=== PATIENT | female | born 1960 | race Caucasian/White ===

== ENCOUNTER 2021-02-17 07:31 | Observation (INO) | payer OTHER ==
[~2021-02-17] VITALS: Ht 162.6 cm; Wt 63.5 kg
[~2021-02-17 07:31] MED LIST: FEROSUL325 MG PO; REXULTI1 MG; SUBOXONE 2 MG-1 EAC2; TYLENOL325 MG PO; VYVANSE30 MG; [UNRECOGNIZED DRUG - REMARK]
[2021-02-17] MEDS ORDERED: CELECOXIB 200 MG CAP ONE (07:39)
[2021-02-17] MEDS ORDERED: DEXAMETHASONE SOD PHOS 10 MG/1 ML VIAL ONE (07:39)
[2021-02-17] MEDS ORDERED: SODIUM CHLORIDE 0.9% 50ML 100 ML ONE (07:40)
[2021-02-17] MEDS ORDERED: GABAPENTIN 300 MG CAP ONE (07:40)
[2021-02-17] MEDS ORDERED: Vancomycin IV 1,000 MG ONE (07:45)
[2021-02-17] MEDS ORDERED: SODIUM CHLORIDE 0.9% 500ML 500 ML ONE (07:45)
[2021-02-17] MEDS ORDERED: TRANEXAMIC ACID 1,000 MG/10 ML ML ONE (07:45)
[2021-02-17] MEDS ORDERED: ROPIVACAINE 246.25 MG, EPINEPHRINE HCL 1:1000 1ML 0.5 MG, CLONIDINE HCL 0.08 MG, KETORO... INJ ONE ×5 (08:00)
[2021-02-17] MEDS ORDERED: DOCUSATE SODIUM 100 MG CAP PO PRN (10:00)
[2021-02-17] MEDS ORDERED: ONDANSETRON HCL INJ 2MG/ML 2ML 2 MG/ML VIAL IV PRN (10:00)
[2021-02-17] MEDS ORDERED: HYDROCODONE/APAP 5MG-325MG TAB PO PRN (10:00)
[2021-02-17] MEDS ORDERED: ACETAMINOPHEN 650 MG SUPP PR PRN (10:00)
[2021-02-17] MEDS ORDERED: KETOROLAC TROMETHAMINE 30 MG/ML VIAL IV PRN (10:00)
[2021-02-17] MEDS ORDERED: DIPHENHYDRAMINE HCL INJ 50 MG/ML VIAL IV PRN (10:00)
[2021-02-17] MEDS ORDERED: HYDROMORPHONE 1MG/1ML INJ ONE (10:17)
[2021-02-17] MEDS ORDERED: MORPHINE SULFATE INJ 2 MG/ML SYR ONE ×2 (10:30→10:35)
[2021-02-17] MEDS ORDERED: KETOROLAC TROMETHAMINE 30 MG/ML VIAL ONE (10:39)
[2021-02-17] MEDS ORDERED: ACETAMINOPHEN 1000 MG/100 ML IV STA (10:50)
[2021-02-17] MEDS ORDERED: DIAZEPAM INJ 5 MG/ML 2 ML IV ONE (11:00)
[2021-02-17] MEDS ORDERED: PROPOFOL IV EMULSION 10 MG/ML 20 ML VIAL ONE (11:57)
[2021-02-17] MEDS ORDERED: ONDANSETRON HCL INJ 2MG/ML 2ML 2 MG/ML VIAL ONE (11:57)
[2021-02-17] MEDS ORDERED: LIDOCAINE HCL 2% LOCAL INJ 5 ML SDV VIAL INJ ONE (11:57)
[2021-02-17] MEDS ORDERED: POVIDONE IODINE 0.05% 0.05 % ML PO ONE (11:57)
[2021-02-17] MEDS ORDERED: SEVOFLURANE INHAL SOLN 250 ML PEN BTL ONE (11:57)
[2021-02-17] MEDS ORDERED: MIDAZOLAM HCL 2 MG/2 ML VIAL ONE (12:28)
[2021-02-17] MEDS ORDERED: KETAMINE HCL INJ 50 MG/ML 10 ML VIAL ONE (12:28)
[2021-02-17] MEDS ORDERED: FENTANYL CITRATE/PF 100MCG/2 ML INJ ONE (12:28)
[2021-02-17] MEDS ORDERED: ROPIVACAINE 0.5% 5 MG/ML 30 ML SDV ONE (13:28)
[2021-02-17] MEDS ORDERED: LIDOCAINE 2%/ EPINEPHRINE 20ML MDV ONE (13:28)
[2021-02-17 14:08] VITALS: BP 154/81
[2021-02-17 14:16] VITALS: BP 168/77
[2021-02-17 15:45] VITALS: BP 131/70
[2021-02-17] MEDS: SUCRALFATE 1 GM/10 ML SUSP NG SCH ×3 (16:30→22:00)
[2021-02-17] MEDS ORDERED: CELECOXIB 100 MG CAP PO SCH (17:00)
[2021-02-17] MEDS ORDERED: ENOXAPARIN SOD INJ 40 MG/0.4 ML SYR SC SCH (17:00)
[2021-02-17] MEDS: SODIUM CHLORIDE 0.9% 1000ML 1,000 ML IV SCH (17:01)
[2021-02-17] MEDS: Cefazolin 1 GM in SODIUM CHLORIDE 0.9% 50ML 50 ML IV SCH ×2 (17:02→22:00)
[2021-02-17 20:00] VITALS: BP 113/61
[2021-02-17] MEDS ORDERED: SUBOXONE 8 MG SL ONE (20:15)
[2021-02-17 20:24] VITALS: BP 113/61
[2021-02-17] MEDS ORDERED: ZOLPIDEM TARTRATE 5 MG TAB PO PRN (21:00)
[2021-02-17] MEDS: HYDROCODONE/APAP 7.5MG-325MG 1 EA TAB PO PRN (21:17)
[2021-02-18] VITALS: BP 107/64
[2021-02-18] MEDS: HYDROCODONE/APAP 7.5MG-325MG 1 EA TAB PO PRN (01:51)
[2021-02-18 04:00] VITALS: BP 127/68
[2021-02-18] MEDS ORDERED: MORPHINE SULFATE INJ 4 MG/ML INJ 1ML IV PRN (04:15)
[2021-02-18] MEDS: SODIUM CHLORIDE 0.9% 1000ML 1,000 ML IV SCH (04:18)
[2021-02-18 05:00] LABS: BASOPHILS % 0.1 % (0.0-1.0); HEMATOCRIT 31.6 % (34.2-44.1); HEMOGLOBIN 9.4 g/dL (12.0-16.0); LYMPHOCYTES % 13.9 % (18.0-39.1); MEAN CORPUSCULAR HEMOGLOBIN 24.4 pg (28-32); MEAN CORPUSCULAR HGB CONC 29.7 g/dL (31-35); MEAN CORPUSCULAR VOLUME 82.1 fL (81-99); MONOCYTES # (AUTO) 0.6 (0.2-0.8); NEUTROPHILS # (AUTO) 5.7 (2.1-6.9); NEUTROPHILS % 77.7 % (38.7-80.0); PLATELET COUNT 328 x10e3/uL (140-360); RED BLOOD COUNT 3.85 x10e6/uL (3.6-5.1)
[2021-02-18] MEDS ORDERED: MORPHINE SULFATE INJ 4 MG/ML INJ 1ML IV ONE (05:15)
[2021-02-18 05:17] LABS: ANION GAP 12.3 mmol/L (8-16); CALCIUM 8.3 mg/dL (8.4-10.2); CREATININE, SERUM 0.65 mg/dL (0.57-1.11); POTASSIUM 4.3 mmol/L (3.5-5.1)
[2021-02-18] MEDS: Cefazolin 1 GM in SODIUM CHLORIDE 0.9% 50ML 50 ML IV SCH (06:34)
[2021-02-18 07:52] VITALS: BP 142/75
[2021-02-18 08:07] VITALS: BP 142/75
[2021-02-18] MEDS: SUCRALFATE 1 GM/10 ML SUSP NG SCH (08:30)
[2021-02-18] MEDS ORDERED: SUBOXONE SL SCH (09:00)
[2021-02-18] MEDS ORDERED: ONDANSETRON HCL 4 MG ORAL DISINTEGRATING TAB PO PRN (09:15)
[2021-02-18] MEDS ORDERED: ACETAMINOPHEN 1000 MG/100 ML IV PRN (10:00)
[2021-02-18] MEDS ORDERED: PANTOPRAZOLE SOD 40 MG TABEC PO SCH (16:30)
== END 2021-02-18 10:30 | disposition home or self-care (01) ==
LOC: OR 07:31 → PACU V 10:01 → MED/SURG 13:48
PROVIDERS: ADMIT Specialist; ATTEND Specialist
DX: M17.12 Unilateral primary osteoarthritis, left knee (principal); J44.9 Chronic obstructive pulmonary disease, unspecified; G89.4 Chronic pain syndrome; D50.9 Iron deficiency anemia, unspecified; F32.9 Major depressive disorder, single episode, unspecified; K25.9 Gastric ulcer, unspecified as acute or chronic, without hemorrhage or perforation; F11.20 Opioid dependence, uncomplicated; Z72.0 Tobacco use; Z01.812 Encounter for preprocedural laboratory examination; Z20.822 Contact with and (suspected) exposure to COVID-19
CPT/HCPCS: 27447; 36415; 73560; 80048; 85025; 86850; 86900; 86920; 97116 ×2; 97161; 97530 ×2; C1713; C9113 ×2; G0378 ×2; J0131; J0171; J0690 ×2; J1100; J1170; J1885; J2001 ×2; J2250; J2270 ×2; J2405; J2704; J2795; J3010; J3360; J3370; J7030 ×2; J7040; U0002